=== PATIENT | female | born 2000 | race Caucasian/White ===

== ENCOUNTER 2019-06-05 14:08 | Emergency (ER) | payer SELFPAY ==
[2019-06-05 14:27] VITALS: BP 135/94; PULSE 116; RESP 18; TEMP 36.9; O2SAT 97; BMI 18.1
--- NOTE | 2019-06-05 14:42 | W.ED.GENADLT ---
HPI - General Adult General: Chief complaint: General Medical Stated complaint: rectal pain Time Seen by Provider: 06/05/19 14:42 Source: patient Mode of arrival: ambulatory Limitations: no limitations History of Present Illness: HPI narrative: Patient comes in emergency room for hemorrhoid pain. Patient shows us a picture of a hemorrhoid that she had which she reports has improved but she continues to have some pain and discomfort when trying to have a bowel movement. Patient denies any fever. Patient appears well and in mild pain. Review of Systems General: Reports: 10 or more systems reviewed and unremarkable except in HPI and below GI: Reports: rectal pain [facility] ED PFSH: Social History (Updated 06/05/19 @ 12:51 by Doirna Paz LPN) Smoking and tobacco status: current every day smoker Alcohol intake: never Female Reproductive History: Date of last menstrual period: 05/26/19 Physical Exam Const: COMMON NORMALS: no apparent distress and oriented x3 GENERAL APPEARANCE: cooperative HENMT: COMMON NORMALS: normocephalic, TM's normal bilaterally and external nose normal HEAD & SCALP: normal to inspection and normocephalic NOSE: external nose normal TYMPANIC MEMBRANE: TM's normal bilaterally MOUTH: oral and palatal mucosa normal THROAT: posterior oropharynx normal Eye: GENERAL EYE: normal appearance of both eyes Neck/C-Spine: COMMON NORMALS: full ROM Lymph: LYMPHATIC: no lymphadenopathy noted Chest: COMMONS NORMALS: inspection of chest normal Resp: COMMON NORMALS: normal respiratory effort EFFORT & INSPECTION: Yes able to speak in complete sentences Cardio: COMMON NORMALS: regular rate and regular rhythm RATE: regular rate RHYTHM: regular rhythm GI: COMMON NORMALS: normal to inspection, nondistended, normoactive bowel sounds (Resolving hemorrhoid is noted to the rectal area. No obvious redness or sign of abscess is noted. Normal sphincter tone.) : COMMON NORMALS: Yes no CVA tenderness BLADDER/KIDNEY EXAM: Yes no CVA tenderness Back/Pelvis: COMMON NORMALS: no CVA tenderness and thoracic and lumbar spine normal to inspection Extremity: COMMON NORMALS: normal to inspection Neuro: COMMON NORMALS: oriented x3 and moves all extremities Psych: COMMON NORMALS: mental status grossly normal and cooperative Skin: COMMON NORMALS: no rashes or lesions noted GENERAL SKIN EXAM: no rashes or lesions noted Course Vital Signs: Vital signs: Vital Signs Temperature 98.4 F 06/05/19 14:27 Pulse Rate 116 H 06/05/19 14:27 Respiratory Rate 18 06/05/19 14:27 Blood Pressure 135/94 06/05/19 14:27 Pulse Oximetry 97 06/05/19 14:27 MDM - General Adult MDM Narrative: Medical decision making narrative: Patient comes in today for rectal pain and hemorrhoids. On exam no obvious hemorrhoid or abscess was noted. Reviewed exam with patient recommended treatment with stool softeners and suppositories for pain. Patient was also given Cipro diclofenac for better improvement of pain than Tylenol or ibuprofen. Patient reported understanding agreed to plan. Discharge Plan Discharge Patient Disposition: Home, Self-Care Clinical Impression: Hemorrhoid Qualifiers: Hemorrhoid type: unspecified Qualified Code(s): K64.9 - Unspecified hemorrhoids Condition: Stable Prescriptions: New senna 8.6 mg tablet 17.2 mg PO DAILY PRN (Reason: constipation) Qty: 30 RF: 0 diclofenac sodium 75 mg tablet,delayed release (DR/EC) 75 mg PO BID PRN (Reason: pain) Qty: 10 RF: 0 Anusol-HC 25 mg suppository 25 mg KS BID 7 Days Qty: 14 RF: 0 No Action norethindrone (contraceptive) 0.35 mg tablet 0.35 mg PO DAILY RF: 0 Discharge Orders: Discharge Order (Routine); Ordered 06/05/19 Ordered By: Arnoldo Alfaro Referrals: Altaf Dupont MD [Family Provider] - Discharge Diet: Usual diet Discharge Activity: Increase activity as tolerated Patient Instructions: Hemorrhoids (ED) Activity Restrictions/Additional Instructions: Drink plenty of fluids, eat plenty of fresh fruits and vegetables. Healthy diet and exercise are good for regular bowel movements. Avoid constipation and straining. Use medications as directed. Follow-up with primary care in 1 week. Return to the emergency department for worsening signs and symptoms or high fever. Coding Level of Care Code ED [place] Drill Operator for Rylee Arevalo Exam Comprehensive
== END 2019-06-05 15:21 | disposition home or self-care (01) ==
PROVIDERS: Emergency Provider Nurse Practitioner Family; Family Provider Family Medicine
DX: K64.9 Unspecified hemorrhoids (principal); F17.210 Nicotine dependence, cigarettes, uncomplicated
CPT/HCPCS: 12345; 99281; 99282

== ENCOUNTER 2019-06-06 17:44 | Emergency (ER) | payer SELFPAY ==
[2019-06-06 18:04] VITALS: BP 145/90; PULSE 123; RESP 18; TEMP 37; O2SAT 96; BMI 18.1
--- NOTE | 2019-06-06 18:13 | ED_ITS ---
HPI - General Adult General: Chief complaint: General Medical Stated complaint: rectal pain Time Seen by Provider: 06/06/19 18:11 History of Present Illness: HPI narrative: Patient is a 18-year-old female who comes to the ED with rectal pain. Patient was seen here in the ED yesterday for same complaint. Patient was discharged with prescriptions for diclofenac, stool softeners and Anusol suppositories. Patient used all those today in which her rectal pain is worse than yesterday. Patient states she has not had a bowel movement in about 3 to 4 days. She has tried to have a bowel movement today but has not been successful. She also says that she is having some stool leakage out of her rectum that she cannot control. Patient's pain she rates at 8 out of 10 currently in the rectum and she also has some nausea. Denies any fever but is currently having the chills. Denies chest pain, shortness of breath, diarrhea, dysuria, hematuria or neuro symptoms. Associated symptoms: Reports nausea; Deny chest pain, dyspnea, headache(s), rash, palpitations or vomiting Review of Systems Const: Reports: chills; Denies: fever or fatigue Eyes: Denies: change in vision or eye discomfort ENMT: Denies: throat pain, painful swallowing, nasal discharge or nasal congestion Card: Denies: chest pain, palpitations, edema, swelling of feet/ankles, shortness of breath on exertion or shortness of breath when lying down Resp: Denies: shortness of breath, productive cough or non-productive cough GI: Reports: abdominal pain (mild LLQ pain), nausea and rectal pain; Denies: vomiting, diarrhea, constipation or blood in stool : Denies: flank pain, painful urination or blood in urine Musc: Denies: neck pain, back pain or extremity swelling Skin/Breast: Denies: rash or new lesion Neuro: Denies: headache, numbness in extremities or weakness in extremities PFSH ED PFSH: Social History Smoking and tobacco status: current every day smoker Alcohol intake: never Female Reproductive History: Date of last menstrual period: 05/27/19 Physical Exam Narrative: EXAM NARRATIVE: Patient is a 18-year-old female that is lying on the exam bed when I enter the room. She appears uncomfortable and in some pain. Patient was also shivering during history and physical exam. Const: COMMON NORMALS: oriented x3, healthy appearing and alert GENERAL APPEARANCE: cooperative HENMT: COMMON NORMALS: normocephalic HEAD & SCALP: normocephalic MOUTH: oral and palatal mucosa normal THROAT: posterior oropharynx normal and uvula midline Eye: COMMON NORMALS: PERRL PUPIL: Yes PERRL Neck/C-Spine: COMMON NORMALS: supple GENERAL: Yes normal visual inspection Resp: COMMON NORMALS: normal respiratory effort, no retractions, no use of accessory muscles and clear to auscultation bilaterally AUSCULTATION: clear to auscultation bilaterally Cardio: COMMON NORMALS: regular rate, regular rhythm, S1 normal heart sound, S2 normal heart sound, no gallops, no clicks, no murmurs and peripheral pulses 2+ throughout RATE: regular rate RHYTHM: regular rhythm HEART SOUNDS: S1 normal and S2 normal PERIPHERAL PULSES: pulses 2+ throughout GI: COMMON NORMALS: normal to inspection, nondistended, normoactive bowel sounds, soft to palpation and no masses AUSCULTATION: Yes normoactive bowel sounds PALPATION: Yes soft and Yes tender Details: LLQ (mild tenderness) : COMMON NORMALS: Yes no CVA tenderness BLADDER/KIDNEY EXAM: Yes no CVA tenderness Back/Pelvis: COMMON NORMALS: no CVA tenderness Extremity: COMMON NORMALS: normal to inspection and no pedal edema Neuro: COMMON NORMALS: oriented x3 and moves all extremities SENSORIUM/ORIENTATION: Yes alert Skin: COMMON NORMALS: no rashes or lesions noted GENERAL SKIN EXAM: no rashes or lesions noted and dry skin Course ED course: I discussed with patient about her fecal impaction and told her that we will do a milk and molasses enema to help move for fecal impaction. Patient was given a milk and molasses enema while here in the ED and she was able to push out fecal impaction. Patient felt instant relief when she passed stool. Nurse told me patient passed a lot of large hard stool. Vital Signs: Vital signs: Vital Signs Temperature 98.6 F 06/06/19 18:04 Pulse Rate 68 06/06/19 23:11 Respiratory Rate 18 06/06/19 23:11 Blood Pressure 132/77 06/06/19 23:11 Pulse Oximetry 98 06/06/19 23:11 MDM - General Adult MDM Narrative: Medical decision making narrative: Patient is a 18-year-old female that comes to the ED with constipation and rectal pain. She has been having liquid bowel leakage for the past 3 days and has been unable to have a bowel movement in the past [address] of the abdomen showed 7.3 cm fecal impaction of the rectum. Patient was given a milk and molasses enema and she was able to pass the large fecal impaction here in the ED and she immediately felt a lot better. Patient was told to follow-up with her PCP in 5 to 7 days for reevaluation. I discussed with patient the importance of eating a high- fiber diet including fruits and vegetables. I also discussed with patient that she could take [id number] MiraLAX to help with bowel movements. I also told her the importance of drinking plenty of water and staying hydrated. Patient understood and agreed with plan. Lab Data: Attestation: I reviewed the patient's lab results. Labs: Lab Results 06/06/19 06/06/19 06/06/19 Range/Units 16:26 16:26 16:26 WBC 12.6 (4.5-13.0) 10^3/ uL RBC 4.71 (4.1-5.3) 10^6/u L Hgb 14.1 (11.5-15.3) g/dL Hct 42.8 (37.0-47.0) % MCV 90.9 (81-99) fL MCH 29.9 (28.0-34.0) pg MCHC 32.9 (30.0-36.0) g/dL RDW 11.9 L (12.1-15.1) % Plt Count 169 (130-400) 10^3/c mm MPV 12.0 H (7.4-10.4) fL Neut % (Auto) 63.7 % Lymph % (Auto) 28.3 % [place] % (Auto) 6.4 % Eos % (Auto) 0.9 % Baso % (Auto) 0.5 % Neut # (Auto) 8.0 (1.8-8.0) 10^3/u L Lymph # (Auto) 3.6 (1.5-6.5) 10^3/u L [place] # (Auto) 0.8 (0.2-0.9) 10^3/u L Eos # (Auto) 0.1 (0.0-0.8) 10^3/u L Baso # (Auto) 0.1 (0.0-0.1) 10^3/u L Nucleated RBC % (a uto) 0 % Nucleated RBCs # 0.0 /100WBC Sodium 135 L (136-145) mmol/L Potassium 4.1 (3.5-5.1) mmol/L Chloride 100 (98-107) mmol/L Carbon Dioxide 19 L (22-29) mmol/L Anion Gap 20.1 H (5-19) BUN 12 (6-20) mg/dL Creatinine 0.8 (0.5-0.9) mg/dL GFR Calculation 92.4 (90-130) mL/min Glucose 78 (65-115) mg/dL Calculated Osmolal ity 275 L (285-295) mOsm/k g Calcium 10.0 (8.5-10.5) mg/dL Total Bilirubin 0.7 (0.15-1.2) mg/dL AST 23 (0-32) U/L ALT 22 (0-33) U/L Alkaline Phosphata se 50 (35-105) IU/L Total Protein 7.3 (6.6-8.7) g/dL Albumin 4.6 (3.5-5.2) g/dL Globulin 2.7 (1.3-4.6) g/dL Lipase 15 (13-60) U/L HCG, Qual Negative (Negative) Urine Color (Yellow) Urine Appearance (CLEAR) Urine pH (5-7) Ur Specific Gravit y (1.005-1.030) Urine Protein (Negative) Urine Glucose (UA) (Normal) Urine Ketones (Negative) Urine Blood (Negative) Urine Nitrate (Negative) Urine Bilirubin (NEGATIVE) Urine Urobilinogen (Negative) mg/dL Ur Leukocyte Marge ase (Negative) Urine RBC (0-2) /hpf Urine WBC (0-5) /hpf Ur Squamous Epith Cells (0-5) Ur Transition Epit h Cell /hpf Ur Renal Epithelia l Cell /hpf Urine Bacteria (NONE) 06/06/19 Range/Units 19:55 WBC (4.5-13.0) 10^3/ uL RBC (4.1-5.3) 10^6/u L Hgb (11.5-15.3) g/dL Hct (37.0-47.0) % MCV (81-99) fL MCH (28.0-34.0) pg MCHC (30.0-36.0) g/dL RDW (12.1-15.1) % Plt Count (130-400) 10^3/c mm MPV (7.4-10.4) fL Neut % (Auto) % Lymph % (Auto) % [place] % (Auto) % Eos % (Auto) % Baso % (Auto) % Neut # (Auto) (1.8-8.0) 10^3/u L Lymph # (Auto) (1.5-6.5) 10^3/u L [place] # (Auto) (0.2-0.9) 10^3/u L Eos # (Auto) (0.0-0.8) 10^3/u L Baso # (Auto) (0.0-0.1) 10^3/u L Nucleated RBC % (a uto) % Nucleated RBCs # /100WBC Sodium (136-145) mmol/L Potassium (3.5-5.1) mmol/L Chloride (98-107) mmol/L Carbon Dioxide (22-29) mmol/L Anion Gap (5-19) BUN (6-20) mg/dL Creatinine (0.5-0.9) mg/dL GFR Calculation (90-130) mL/min Glucose (65-115) mg/dL Calculated Osmolal ity (285-295) mOsm/k g Calcium (8.5-10.5) mg/dL Total Bilirubin (0.15-1.2) mg/dL AST (0-32) U/L ALT (0-33) U/L Alkaline Phosphata se (35-105) IU/L Total Protein (6.6-8.7) g/dL Albumin (3.5-5.2) g/dL Globulin (1.3-4.6) g/dL Lipase (13-60) U/L HCG, Qual (Negative) Urine Color Yellow (Yellow) Urine Appearance Clear (CLEAR) Urine pH 8 H (5-7) Ur Specific Gravit y 1.020 (1.005-1.030) Urine Protein Neg (Negative) Urine Glucose (UA) Norm (Normal) Urine Ketones 1+ H (Negative) Urine Blood Neg (Negative) Urine Nitrate Negative (Negative) Urine Bilirubin Neg (NEGATIVE) Urine Urobilinogen Norm (Negative) mg/dL Ur Leukocyte Marge ase Negative (Negative) Urine RBC None (0-2) /hpf Urine WBC None (0-5) /hpf Ur Squamous Epith Cells 0-4 H (0-5) Ur Transition Epit h Cell None /hpf Ur Renal Epithelia l Cell None /hpf Urine Bacteria None (NONE) Imaging Data^: CT Abd/Pel: Attestation: I personally reviewed and interpreted this imaging study as follows: Radiologist's impression: [place] [address] CT Scan Report Signed Patient: Cecily Varela Unit #: [id number] : 2000 Age/Sex: 18 / F ADM Date: 06/06/19 Loc: ER Room/Bed: Attending Dr: Ordering Provider/Ordering MD: Petr Cruz Date of Service: 06/06/19 Procedure(s): CT abdomen pelvis w con* [id number] Accession Number(s): [id number] Report Number: [id number] PROCEDURE INFORMATION: Exam: CT Abdomen And Pelvis With Contrast Exam date and time: 06/06/2019 7:12 PM Age: 18 years old Clinical indication: Abdominal pain; Generalized; Additional info: Llq pain and no bm in about 3-4 days TECHNIQUE: Imaging protocol: Computed tomography of the abdomen and pelvis with intravenous contrast. Radiation optimization: All CT scans at this facility use at least one of these dose optimization techniques: automated exposure control; mA and/or kV adjustment per patient size (includes targeted exams where dose is matched to clinical indication); or iterative reconstruction. Contrast material: OMNI 300; Contrast volume: 75 ml; Contrast route: 18G; COMPARISON: US pelvic with transvaginal 10/10/2018 1:15 PM RADIATION DOSE METRICS: Total DLP: 520.57 mGy-cm FINDINGS: Lungs: Limited assessment lung bases of visible evidence for active cardiopulmonary process. Liver: Unremarkable. No mass. Gallbladder and bile ducts: Normal. No calcified stones. No ductal dilation. Pancreas: Normal. No ductal dilation. Spleen: Normal. No splenomegaly. Adrenals: Normal. No mass. Kidneys and ureters: Normal. No hydronephrosis. Stomach and bowel: Examination reveals constipation with fecal impaction. 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 Currently no associated mechanical small bowel obstruction. No gastric ectasia. Appendix: No visible evidence of appendicitis. Intraperitoneal space: Unremarkable. No free air. No significant fluid collection. Vasculature: Unremarkable. No abdominal aortic aneurysm. Lymph nodes: Unremarkable. No enlarged lymph nodes. Bladder: Unremarkable as visualized. Reproductive: Unremarkable as visualized. Bones/joints: Unremarkable. No acute fracture. Soft tissues: Unremarkable. CT/CT abdomen pelvis w con* [id number] IMPRESSION: Examination reveals constipation with fecal impaction. 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 Currently no associated mechanical small bowel obstruction. No gastric ectasia. Radiation Dose CTDIVOL = (mGy): DLP = 520.57 (mGy-cm) Dictated By: Lalit Cotton Signed By: Lalit Cotton Signed Date/Time: 06/06/192101 DD/ 99 Discharge Plan Discharge Patient Disposition: Home, Self-Care Clinical Impression: Fecal impaction in rectum Condition: Stable Prescriptions: No Action norethindrone (contraceptive) 0.35 mg tablet 0.35 mg PO DAILY RF: 0 senna 8.6 mg tablet 17.2 mg PO DAILY PRN (Reason: constipation) Qty: 30 RF: 0 diclofenac sodium 75 mg tablet,delayed release (DR/EC) 75 mg PO BID PRN (Reason: pain) Qty: 10 RF: 0 Anusol-HC 25 mg suppository 25 mg [place] BID 7 Days Qty: 14 RF: 0 Discharge Orders: Discharge Order (Routine); Ordered 06/06/19 Ordered By: Petr Cruz Referrals: Altaf Dupont MD [Family Provider] - Discharge Diet: Regular Discharge Activity: Resume usual activity Patient Instructions: Constipation (ED), High Fiber Diet (ED) Activity Restrictions/Additional Instructions: Follow-up with your PCP in the next 7 to 10 days for reevaluation. Drink plenty of fluids and stay hydrated. Remember to eat a balanced diet with lots of fiber including fruits and vegetables. You can also purchase [id number] MiraLAX and take daily to help normalize bowels if you are feeling constipated again. Discharge Date/Time: 06/06/19 23:13 Coding Level of Care Code ED Sheet Metal Technician for Rylee Fwd Exam Comprehensive
--- NOTE | 2019-06-06 19:09 | CTR_ITS ---
PROCEDURE INFORMATION: Exam: CT Abdomen And Pelvis With Contrast Exam date and time: 06/06/2019 7:12 PM Age: 18 years old Clinical indication: Abdominal pain; Generalized; Additional info: Llq pain and no bm in about 3-4 days TECHNIQUE: Imaging protocol: Computed tomography of the abdomen and pelvis with intravenous contrast. Radiation optimization: All CT scans at this facility use at least one of these dose optimization techniques: automated exposure control; mA and/or kV adjustment per patient size (includes targeted exams where dose is matched to clinical indication); or iterative reconstruction. Contrast material: OMNI 300; Contrast volume: 75 ml; Contrast route: 18G; COMPARISON: US pelvic with transvaginal 10/10/2018 1:15 PM RADIATION DOSE METRICS: Total DLP: 520.57 mGy-cm FINDINGS: Lungs: Limited assessment lung bases of visible evidence for active cardiopulmonary process. Liver: Unremarkable. No mass. Gallbladder and bile ducts: Normal. No calcified stones. No ductal dilation. Pancreas: Normal. No ductal dilation. Spleen: Normal. No splenomegaly. Adrenals: Normal. No mass. Kidneys and ureters: Normal. No hydronephrosis. Stomach and bowel: Examination reveals constipation with fecal impaction. 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 Currently no associated mechanical small bowel obstruction. No gastric ectasia. Appendix: No visible evidence of appendicitis. Intraperitoneal space: Unremarkable. No free air. No significant fluid collection. Vasculature: Unremarkable. No abdominal aortic aneurysm. Lymph nodes: Unremarkable. No enlarged lymph nodes. Bladder: Unremarkable as visualized. Reproductive: Unremarkable as visualized. Bones/joints: Unremarkable. No acute fracture. Soft tissues: Unremarkable. CT/CT abdomen pelvis w con* [id number] IMPRESSION: Examination reveals constipation with fecal impaction. 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 Currently no associated mechanical small bowel obstruction. No gastric ectasia. Radiation Dose CTDIVOL = (mGy): DLP = 520.57 (mGy-cm)
[2019-06-06 19:43] LABS: HCG, Serum Qual Negative (Negative)
[2019-06-06] MEDS: sodium chloride 0.9% 1,000 ML 999 ML IV (19:49)
[2019-06-06] MEDS: ondansetron 2 mg/ML SDV 2 mL 4 MG IVP (19:49)
[2019-06-06 19:50] VITALS: RESP 18; O2SAT 99
[2019-06-06] MEDS: morphine 4 mg/mL SDV 1 mL 2 MG IVP (19:50)
[2019-06-06 19:55] LABS: Basophils # 0.1 10^3/uL (0.0-0.1); Basophils % 0.5 %; Eosinophils # 0.1 10^3/uL (0.0-0.8); Eosinophils % 0.9 %; Hematocrit 42.8 % (37.0-47.0); Hemoglobin 14.1 g/dL (11.5-15.3); Lymphocytes # 3.6 10^3/uL (1.5-6.5); Lymphocytes % 28.3 %; Mean Corpuscular HGB Conc 32.9 g/dL (30.0-36.0); Mean Corpuscular Hemoglobin 29.9 pg (28.0-34.0); Mean Corpuscular Volume 90.9 fL (81-99); Monocytes # 0.8 10^3/uL (0.2-0.9); Monocytes % 6.4 %; Neutrophils % 63.7 %; Nucleated Red Blood Cells % 0 %; Platelet Count 169 10^3/cmm (130-400); Red Blood Count 4.71 10^6/uL (4.1-5.3); Red Cell Distribution Width 11.9 % (12.1-15.1); White Blood Count 12.6 10^3/uL (4.5-13.0)
[2019-06-06 20:00] LABS: Alanine Aminotransferase 22 U/L (0-33); Albumin Level 4.6 g/dL (3.5-5.2); Alkaline Phosphatase 50 IU/L (35-105); Anion Gap 20.1 (5-19); Blood Urea Nitrogen 12 mg/dL (6-20); Carbon Dioxide 19 mmol/L (22-29); Chloride 100 mmol/L (98-107); Globulin 2.7 g/dL (1.3-4.6); Glomerular Filtration Rate 92.4 mL/min (90-130); Glucose 78 mg/dL (65-115); Lipase 15 U/L (13-60); Osmolality Calculated 275 mOsm/kg (285-295); Potassium 4.1 mmol/L (3.5-5.1); Sodium 135 mmol/L (136-145); Total Bilirubin 0.7 mg/dL (0.15-1.2); Total Protein 7.3 g/dL (6.6-8.7)
[2019-06-06 20:17] LABS: Slide Review Slide Review Perform
[2019-06-06] MEDS: iohexol 300 mg/mL 100 mL Btl IV (20:55)
[2019-06-06 20:57] VITALS: BP 99/66; PULSE 78; RESP 16; O2SAT 99
[2019-06-06 20:59] LABS: Aspartate Amino Transferase 23 U/L (0-32)
[2019-06-06 22:05] LABS: Bilirubin Urine Neg (NEGATIVE); Blood Urine Neg (Negative); Glucose Urine UA Norm (Normal); Ketones Urine 1+ (Negative); Leukocyte Esterase Urine Negative (Negative); Nitrate Urine Negative (Negative); Protein Urine Neg (Negative); Urine Appearance Clear (CLEAR); Urine Color Yellow (Yellow); Urobilinogen Urine Norm (Negative); pH Urine 8 (5-7)
[2019-06-06 22:21] LABS: Squamous Epithelial Cell Urine 0-4 (0-5)
[2019-06-06 22:22] LABS: Add Urine Culture? No
[2019-06-06 22:45] VITALS: BP 123/74; PULSE 78; RESP 16; O2SAT 99
[2019-06-06 23:11] VITALS: BP 132/77; PULSE 68; RESP 18; O2SAT 98
== END 2019-06-06 23:13 | disposition home or self-care (01) ==
PROVIDERS: Emergency Provider Physician Assistant; Family Provider Family Medicine
DX: K56.41 Fecal impaction (principal); F17.210 Nicotine dependence, cigarettes, uncomplicated
CPT/HCPCS: 12345; 36415; 74177; 80053; 81001; 83690; 84703; 85025; 96360; 96361; 96374; 96375; 99283; A9270; J2270; J2405; J7030; Q9967

== ENCOUNTER 2021-02-09 12:30 | Emergency (ER) | payer SELFPAY ==
[2021-02-09 13:02] VITALS: BP 118/78; PULSE 95; RESP 18; TEMP 37.2; O2SAT 99; BMI 17.9
--- NOTE | 2021-02-09 13:11 | W.ED.WOUNDLC ---
HPI - Wound/Laceration General: Chief Complaint: Wound/Laceration Stated Complaint: HAND LAC Time Seen by Provider: 02/09/21 13:10 Source: patient and family Mode of arrival: ambulatory Limitations: no limitations History of Present Illness: HPI narrative: Patient is a 20-year-old female presents to ED today with complaints of a right thumb laceration that she sustained just prior to arrival after cutting it on a tin can when she was trying to open it. Last tetanus was in 2012. Onset (ago): hour(s) Extremity Location: Right: hand Place: home Patient tetanus UTD: No Context: accidental Associated symptoms: Reports no associated symptoms Review of Systems Musc: Reports: extremity pain (R thumb) Skin/Breast: Reports: other (laceration R thumb) Neuro: Denies: numbness in extremities, weakness in extremities or sensory changes PFSH ED PFSH: Social History Smoking and tobacco status: current every day smoker Alcohol intake: never Female Reproductive History: Date of last menstrual period: 01/19/21 Physical Exam Const: COMMON NORMALS: no acute distress, average body habitus, patient oriented x3, no limitations, healthy appearing, alert and well nourished Extremity: GENERAL: Yes normal exam except as noted RIGHT UPPER EXTREMITY: Yes hand & digits (see below) Right hand and digits: Yes ROM exam (normal) and Yes neurovascular exam (normal) OTHER: pt has a small 1cm superficial laceration to her volar distal R thumb-very small portion of the laceration disrupts the nail fold but there is no nail plate or nailbed damage; laceration approximates perfectly on it's own and would be amendable to simple skin adhesive/glue closure Neuro: COMMON NORMALS: patient oriented x3, moves all extremities, no focal motor deficits and no sensory deficits noted SENSORIUM/ORIENTATION: Yes alert Skin: NARRATIVE SKIN EXAM: see extremity assessment for pertinent skin findings Course Vital Signs: Vital signs: Vital Signs Temperature 99.0 F 02/09/21 13:02 Pulse Rate 95 02/09/21 13:02 Respiratory Rate 18 02/09/21 13:02 Blood Pressure 118/78 02/09/21 13:02 Pulse Oximetry 99 02/09/21 13:02 MDM - Wound/Laceration MDM Narrative: Medical decision making narrative: Wound copiously irrigated by myself and repaired with skin adhesive/glue. Wound care discussed verbally with patient. Tetanus updated. Discharge Plan Discharge Patient Disposition: Home Clinical Impression: Laceration of right thumb Qualifiers: Encounter type: initial encounter Damage to nail status: without damage Foreign body presence: without foreign body Qualified Code(s): S61.011A - Laceration without foreign body of right thumb without damage to nail, initial encounter Condition: Stable Prescriptions: No Action norethindrone (contraceptive) 0.35 mg tablet 0.35 mg PO DAILY RF: 0 senna 8.6 mg tablet 17.2 mg PO DAILY PRN (Reason: constipation) Qty: 30 RF: 0 diclofenac sodium 75 mg tablet,delayed release (DR/EC) 75 mg PO BID PRN (Reason: pain) Qty: 10 RF: 0 Discharge Orders: Discharge ED (Routine); Ordered 02/09/21 Ordered By: Kalpana Carnes Patient Instructions: Laceration (ED), Skin Adhesive Care (ED) Activity Restrictions/Additional Instructions: Keep wound/laceration clean with warm soap and water twice daily. Monitor for signs of infection such as redness, swelling, increased pain, or drainage. Please seek medical re-evaluation if these occur. If your wound was closed with Steri-Strips or glue/adhesive these will fall off within the next week or so. Stand Alone Forms: Work/School Release Coding Level of Care Code ED Wheel Adjuster for Rylee Arevalo
[2021-02-09] MEDS: tetanus-diphtheria tox (adult) 0.5 mL SDV IM (13:46)
[2021-02-09 13:49] VITALS: BP 118/78; PULSE 95; RESP 18; O2SAT 99
== END 2021-02-09 13:51 | disposition home or self-care (01) ==
PROVIDERS: Emergency Provider Physician Assistant
DX: F17.210 Nicotine dependence, cigarettes, uncomplicated (principal); S61.011A Laceration without foreign body of right thumb without damage to nail, initial encounter; W26.8XXA Contact with other sharp object(s), not elsewhere classified, initial encounter; W45.8XXA Other foreign body or object entering through skin, initial encounter
CPT/HCPCS: 90471; 90714; 99282

== ENCOUNTER 2022-05-16 22:23 | Emergency (ER) | payer OTHER, SELFPAY ==
[2022-05-16 22:39] VITALS: BP 136/98; PULSE 93; RESP 16; TEMP 36.6; O2SAT 98; BMI 22.4
--- NOTE | 2022-05-16 23:13 | ED_ITS ---
HPI - Anxiety General: Chief Complaint: Anxiety Stated Complaint: anxiety Time Seen by Provider: 05/16/22 22:59 History of Present Illness: Patient is a 21-year-old female comes to the ED with acute anxiety. Patient has a history of anxiety and panic attacks. She recently started Prozac a couple days ago. She states that tonight around 6 PM she smokes some marijuana and she started getting bad panic attack. She was short of breath, anxious describes having a burning pain throughout her chest. Symptoms have been going on now for the past 4 to 5 hours but she states that she is feeling quite a bit better by the time she arrived here to the ED. Denies any other symptoms or drug use. Associated symptoms: Deny chest pain, chills, fever(s), headache(s), nausea, palpitations or vomiting Review of Systems Const: Denies: fever(s), chills or fatigue Eyes: Denies: change in vision or eye discomfort ENMT: Denies: throat pain, odynophagia, nasal discharge or nasal congestion Card: Denies: chest pain, palpitations, edema, swelling of feet/ankles, dyspnea on exertion or orthopnea Resp: Denies: dyspnea, productive cough or non-productive cough GI: Denies: abdominal pain, nausea, vomiting, diarrhea, constipation or h ematochezia : Denies: flank pain, dysuria or hematuria Musc: Denies: neck pain, back pain or extremity swelling Skin/Breast: Denies: rash or new lesions Neuro: Denies: headache(s), numbness in extremities or weakness in extremities Psych: Reports: anxiety and panic attacks [facility] PFSH: Medical History (Updated 05/16/22 @ 23:49 by BORA Acosta) No pertinent family history Psychiatric care Social History Smoking and tobacco status: current every day smoker Alcohol intake: never Physical Exam Const: COMMON NORMALS: patient oriented x3 and alert GENERAL APPEARANCE: cooperative, comfortable and anxious HENMT: COMMON NORMALS: normocephalic HEAD & SCALP: normocephalic MOUTH: Normal oral and palatal mucosa present THROAT: posterior oropharynx normal and uvula midline Neck/C-Spine: COMMON NORMALS: supple GENERAL: Yes normal visual inspection Resp: COMMON NORMALS: normal respiratory effort, No retractions, No use of accessory muscles and clear to auscultation bilaterally AUSCULTATION: clear to auscultation bilaterally Cardio: COMMON NORMALS: regular rate, regular rhythm, S1 normal heart sound present, S2 normal heart sound present, No gallops present (Cardio), No clicks present (Cardio), No murmurs present (Cardio) and Peripheral pulses 2+ throughout RATE: regular rate RHYTHM: regular rhythm HEART SOUNDS: S1 normal heart sound present and S2 normal heart sound present PERIPHERAL PULSES: Peripheral pulses 2+ throughout GI: COMMON NORMALS: Normal to inspection, nondistended, normoactive bowel sounds present, Soft to palpation, non-tender and no masses PALPATION: Yes Soft to palpation : COMMON NORMALS: Yes no CVA tenderness BLADDER/KIDNEY EXAM: Yes no CVA tenderness Back/Pelvis: COMMON NORMALS: no CVA tenderness Extremity: COMMON NORMALS: normal to inspection Neuro: COMMON NORMALS: patient oriented x3 SENSORIUM/ORIENTATION: Yes alert GAIT: Yes Normal gait present Skin: GENERAL SKIN EXAM: dry skin Course Vital Signs: Vital signs: Vital Signs Temperature 97.9 F 05/16/22 22:39 Pulse Rate 93 05/16/22 22:39 Respiratory Rate 17 05/17/22 00:31 Blood Pressure 136/98 05/16/22 22:39 Pulse Oximetry 98 05/16/22 22:39 Oxygen Delivery Me thod 05/16/22 22:39 MDM - Anxiety Medical Decision Making Patient is a 21-year-old female comes to the ED with acute anxiety. Patient has a history of anxiety and panic attacks. She recently started Prozac a couple days ago. She states that tonight around 6 PM she smokes some marijuana and she started getting bad panic attack. She was short of breath, anxious describes having a burning pain throughout her chest. Symptoms have been going on now for the past 4 to 5 hours but she states that she is feeling quite a bit better by the time she arrived here to the ED. Denies any other symptoms or drug use. Vitals are stable. Patient appears little anxious but rest of exam is benign. EKG showed sinus rhythm, [address] segment elevation or depression seen. Patient was given a dose of Vistaril here in the ED and her symptoms resolved. She was stable and ready for discharge home. Diagnosed with acute anxiety and told to follow-up with her PCP in the next week for reevaluation. Return ED precautions given. Patient understood and agreed with plan. EKG Data EKG 1: EKG interpretation date: 05/16/22 Interpretation: Sinus rhythm, 73 bpm, no ST segment elevation or depression seen. Discharge Plan Discharge Patient Disposition: Home Clinical Impression: Acute anxiety Condition: Stable Prescriptions: No Action mirtazapine [Remeron] 15 mg tablet 15 mg PO .HS Qty: 30 1RF fluoxetine [Prozac] 20 mg capsule 20 mg PO DAILY Qty: 30 1RF hydroxyzine HCl 25 mg tablet 25 mg PO BID PRN (Reason: anxiety) Qty: 60 1RF medroxyprogesterone [Depo-Provera] 150 mg/mL suspension IM multivitamin Tablet 1 tab PO DAILY Discharge Orders: Discharge ED (Routine); Ordered 05/17/22 Ordered By: Petr Cruz Discharge Diet: Regular Discharge Activity: Increase activity as tolerated Activity Restrictions/Additional Instructions: Follow-up with medical provider as directed in the next 5 to 7 days for reevaluation. Take medications as prescribed. Return to the ER or your medical provider if condition worsens. Please read and understand discharge instructions. Thank you for choosing [facility] for your healthcare needs today. Please realize this is an emergency room and that we are providing you with a medical screening exam and this may not be complete and all inclusive of all the testing and or work up that you may need to determine your ailment or severity of your illness. It is very important that you follow up as instructed or that you return to the Emergency Department should you have concerns or if your condition changes or worsens in any way. Coding Level of Care Code ED Trimming Caser for Rylee Arevalo
--- NOTE | 2022-05-16 23:13 | ECG_ITS ---
[facility] Test Date: 2022-05-16 Pat Name: Cecily Varela Department: Room: Gender: Female Medical Transcription Supervisor: : 2000 Requested By: Petr Cruz Order Number: [id number] Lewis MD: Wade Holland M.D. Measurements Intervals [place] Rate: 73 P: 66 NV: 122 QRS: 80 QRSD: 85 T: 72 QT: 368 QTc: 407 Interpretive Statements SINUS RHYTHM No previous ECG available for comparison Electronically Signed On 05-17-2022 2:22:21 CDT by Wade Holland M.D. [id number]
[2022-05-16] MEDS: hyDROXYzine 25 mg Capsule 50 MG PO (23:20)
--- NOTE | 2022-05-17 00:09 | PC.NURSE ---
Pt reports feeling better and is ready to go home.
[2022-05-17 00:31] VITALS: RESP 17
--- NOTE | 2022-05-23 14:37 | DCPLANNER ---
Addendum entered by Mora Guzman 06/13/22 14:00: Patient had a follow up appointment scheduled with Dr. Frye to establish care - patient did attend appointment. Original Note: donor relations manager called patient due to no primary care physician. Patient stated that she would like help in getting established with a primary care physician. donor relations manager called [facility], gave clinic patients information. A follow up appointment was scheduled for Sunday, June 12, 2022 at 3:[address] Frye at [facility] - patient is aware of appointment.
== END 2022-05-17 00:35 | disposition home or self-care (01) ==
PROVIDERS: Emergency Provider Physician Assistant
DX: F41.9 Anxiety disorder, unspecified (principal); F17.210 Nicotine dependence, cigarettes, uncomplicated
CPT/HCPCS: 93005; 99283

== ENCOUNTER 2022-05-21 15:42 | Emergency (ER) | payer OTHER, SELFPAY ==
[2022-05-21 15:47] VITALS: BP 147/88; PULSE 111; RESP 22; TEMP 36.7; O2SAT 98; BMI 21.1
--- NOTE | 2022-05-21 15:56 | ED_ITS ---
Documented by User: Cecily Bobby PA-C 05/21/22 16:26 HPI - Anxiety General: Chief Complaint: Anxiety Stated Complaint: anxiety Time Seen by Provider: 05/21/22 15:55 Source: patient Mode of arrival: ambulatory Limitations: no limitations History of Present Illness: 21-year-old female with a history of severe anxiety presents to the ER today for worsening symptoms. Patient reports about a week and a half ago she was started on Prozac and within 2 days had a severe panic attack. Patient reports that was the first time she ever had something like that. Patient was seen in the ER and started on hydroxyzine which helped. She also talked to her nurse practitioner psychiatrist clinic and they stopped the Prozac. Patient's nurse practitioner is concerned that patient's anxiety trigger is a new medication due to a family history of addiction problems. Patient reports she is been on many things. She was in a psychiatric unit at age 13 and started on Seroquel. Soon after starting the Seroquel she had convulsions. Patient reports that was stopped. She is currently taking Remeron but has been on many things including Zoloft, other SSRIs including the Prozac, and several other medications. Patient reports nothing seems to work very well or she has side effects with it. Patient denies suicidal ideation at this time. Patient reports she has very good family support. In the ER with her today is her mother and significant other. Patient reports she had considered admitting herself today however is not completely sold that that is going to help her symptoms. Patient reports she is had decreased appetite and nausea and vomiting due to her anxiety. She is drinking plenty of water and drinks with electrolytes in them to stay hydrated. Review of Systems General: Reports: 10 or more systems reviewed and unremarkable except in HPI and below PFSH ED PFSH: Medical History No pertinent family history Psychiatric care Social History Smoking and tobacco status: current every day smoker Alcohol intake: never Physical Exam Const: COMMON NORMALS: no acute distress, average body habitus, patient oriented x3, no limitations, healthy appearing, alert and well nourished Resp: COMMON NORMALS: normal respiratory effort and No retractions Cardio: COMMON NORMALS: regular rhythm RATE: tachycardic RHYTHM: regular rhythm Extremity: COMMON NORMALS: normal to inspection and full ROM Neuro: COMMON NORMALS: patient oriented x3 SENSORIUM/ORIENTATION: Yes alert Psych: MOOD & AFFECT: Yes anxious, No irritable and Yes tearful Skin: COMMON NORMALS: no rashes or lesions noted and no wounds GENERAL SKIN EXAM: no rashes or lesions noted Course ED course: Patient presents the ER today for continued anxiety for the last week. Patient was seen Sunday and started on hydroxyzine. She reports that does help with anxiety however also makes her very sleepy. She completely stopped the Prozac and did see her nurse practitioner who was concerned about putting her on new medications due to the fact that they think the trigger is new medications for her anxiety. Patient denies being suicidal at this time. No thoughts of hurting herself. She has a very good support system at home including mother and significant other. Patient is open to trying another medication here and avoiding an inpatient stay. Patient is especially concerned about having an inpatient stay if she is going to be sent elsewhere. Vital Signs: Vital signs: Vital Signs Temperature 98.1 F 05/21/22 15:47 Pulse Rate 111 H 05/21/22 15:47 Respiratory Rate 22 H 05/21/22 15:47 Blood Pressure 147/88 05/21/22 15:47 Pulse Oximetry 98 05/21/22 15:47 Oxygen Delivery Me thod Room Air 05/21/22 15:47 MDM - Anxiety Medical Decision Making I do think patient has a safe home environment. She plans to go and stay with her mom for the next several days until things stabilize. Her significant other seems very supportive also. I discussed with patient different treatment options. I think patient could benefit from buspirone scheduled twice daily and a third time a day as needed at this time. She can also do hydroxyzine as needed, especially at bedtime if the anxiety is high. I think patient needs something besides just this and the Remeron however her psychiatrist really needs to be the one trying different medications. I do not think patient necessarily would do well in an inpatient setting. Given the fact that she is not suicidal and has no thoughts of harming yourself, I think outpatient would be the best at this time. Patient has an appointment with her counselor set up for Sunday and will contact her PCP/nurse practitioner tomorrow to discuss other options and see them. I discussed with patient if she has any worsening symptoms or if she has any reactions to the buspirone she can return to the ER and we can consider inpatient treatment at that time. Patient and family verbalized understanding and are in agreement with this treatment plan. Critical Care Time Critical Care Time: Critical Care Time: No Discharge Plan Discharge Patient Disposition: Home Clinical Impression: Panic disorder, Acute anxiety Condition: Stable Prescriptions: New buspirone 10 mg tablet 10 mg PO TID Qty: 30 0RF Rx Instructions: Scheduled twice a day and may take a third time as needed for anxiety No Action mirtazapine [Remeron] 15 mg tablet 15 mg PO .HS Qty: 30 1RF hydroxyzine HCl 25 mg tablet 25 mg PO BID PRN (Reason: anxiety) Qty: 60 1RF multivitamin Tablet 1 tab PO DAILY Discharge Orders: Discharge ED (Routine); Ordered 05/21/22 Ordered By: Cecily Bobby Discharge Diet: Usual diet Discharge Activity: Resume usual activity Patient Instructions: Opioid Safety, Pain Management Activity Restrictions/Additional Instructions: Take buspirone twice daily scheduled and the third time as needed for anxiety. Okay to also take hydroxyzine as needed. Follow-up with psychiatrist tomorrow and counselor on Sunday at scheduled appointment if not earlier. Return to the ER with any new or worsening symptoms. Coding Level of Care Code ED Route Delivery Clerk for Chg Fwd Documented by User: Mateus Bliss DO 05/22/22 05:18 HPI - Anxiety General: Chief Complaint: Anxiety Stated Complaint: anxiety Time Seen by Provider: 05/21/22 15:55 PFSH ED PFSH: Medical History No pertinent family history Psychiatric care Social History Smoking and tobacco status: current every day smoker Alcohol intake: never Course Vital Signs: Vital signs: Vital Signs Temperature 98.1 F 05/21/22 15:47 Pulse Rate 111 H 05/21/22 15:47 Respiratory Rate 22 H 05/21/22 15:47 Blood Pressure 147/88 05/21/22 15:47 Pulse Oximetry 98 05/21/22 15:47 Oxygen Delivery Me thod Room Air 05/21/22 15:47 MDM - Anxiety Medical Decision Making I do think patient has a safe home environment. She plans to go and stay with her mom for the next several days until things stabilize. Her significant other seems very supportive also. I discussed with patient different treatment options. I think patient could benefit from buspirone scheduled twice daily and a third time a day as needed at this time. She can also do hydroxyzine as needed, especially at bedtime if the anxiety is high. I think patient needs s omething besides just this and the Remeron however her psychiatrist really needs to be the one trying different medications. I do not think patient necessarily would do well in an inpatient setting. Given the fact that she is not suicidal and has no thoughts of harming yourself, I think outpatient would be the best at this time. Patient has an appointment with her counselor set up for Sunday and will contact her PCP/nurse practitioner tomorrow to discuss other options and see them. I discussed with patient if she has any worsening symptoms or if she has any reactions to the buspirone she can return to the ER and we can consider inpatient treatment at that time. Patient and family verbalized understanding and are in agreement with this treatment plan. Chart reviewed and patient discussed with midlevel. Agree with assessment and plan. Discharge Plan Discharge Patient Disposition: Home Clinical Impression: Panic disorder, Acute anxiety Condition: Stable Prescriptions: New buspirone 10 mg tablet 10 mg PO TID Qty: 30 0RF Rx Instructions: Scheduled twice a day and may take a third time as needed for anxiety No Action mirtazapine [Remeron] 15 mg tablet 15 mg PO .HS Qty: 30 1RF hydroxyzine HCl 25 mg tablet 25 mg PO BID PRN (Reason: anxiety) Qty: 60 1RF multivitamin Tablet 1 tab PO DAILY Discharge Orders: Discharge ED (Routine); Ordered 05/21/22 Ordered By: Cecily Bobby Discharge Diet: Usual diet Discharge Activity: Resume usual activity Patient Instructions: Opioid Safety, Pain Management Activity Restrictions/Additional Instructions: Take buspirone twice daily scheduled and the third time as needed for anxiety. Okay to also take hydroxyzine as needed. Follow-up with psychiatrist tomorrow and counselor on Sunday at scheduled appointment if not earlier. Return to the ER with any new or worsening symptoms. Coding Level of Care Code ED Route Delivery Clerk for Rylee Arevalo
[2022-05-21] MEDS: BuSPIRONE 10 mg Tablet PO (16:28)
--- NOTE | 2022-05-25 13:56 | DCPLANNER ---
health sciences manager was triggered to call patient due to no primary care physician. health sciences manager spoke with patient after another visit to the ER, where spring encaser scheduled an appointment with Dr. Frye to establish care.
== END 2022-05-21 16:37 | disposition home or self-care (01) ==
PROVIDERS: Emergency Provider Physician Assistant
DX: F41.9 Anxiety disorder, unspecified (principal); F41.0 Panic disorder [episodic paroxysmal anxiety]; F17.210 Nicotine dependence, cigarettes, uncomplicated
CPT/HCPCS: 99283